=== PATIENT | male | born 1965 | race Caucasian/White ===

== ENCOUNTER 2024-03-06 07:14 | Day surgery (SDC) | payer OTHER, SELFPAY ==
[2024-03-04 08:51] LABS: Hemoglobin 15.2 g/dL (13.0-18.0); Mean Corp Hgb Conc. 33.8 g/dL (33.0-37.0); Mean Corpuscular Hgb 30.9 pg (27.0-31.0); Mean Corpuscular Volume 91.5 fL (80.0-94.0); Mean Platelet Volume 10.3 fL (7.4-10.4); Platelet Count 181 10^3/uL (130-400); Red Blood Cell Count 4.92 10^6/uL (4.70-6.10)
[2024-03-04 12:15] VITALS: BMI 26.2
[2024-03-06 11:35] VITALS: BP 141/77
[2024-03-06] MEDS: TYLENOL 1000 MG PO (11:41)
[2024-03-06] MEDS: CELEBREX 200 MG PO (11:41)
[2024-03-06 11:56] VITALS: BMI 26.2
[2024-03-06 12:07] LABS: Glucose - Point of Care 155 mg/dl (70-99)
[2024-03-06 14:38] VITALS: BP 141/77; BP 141/85
[2024-03-06] MEDS: DILAUDID 0.25 MG IV (14:50)
[2024-03-06 15:06] LABS: Glucose - Point of Care 185 mg/dl (70-99)
[2024-03-06] MEDS: DEMEROL 12.5 MG IV (15:21)
[2024-03-06 15:45] VITALS: BP 126/78
[2024-03-06 16:00] VITALS: BP 133/82
[2024-03-06 16:30] VITALS: BP 144/87
== END 2024-03-06 16:40 | disposition home or self-care (01) ==
LOC: SDS 07:14
PROVIDERS: ATTENDING PHYSICIAN Specialist; FAMILY PHYSICIAN Nurse Practitioner Family
DX: M75.122 Complete rotator cuff tear or rupture of left shoulder, not specified as traumatic (principal); M75.42 Impingement syndrome of left shoulder
CPT/HCPCS: 29827; 29826; 29823; 36415; 82962; 85027; 93005; C1713